=== PATIENT | female | born 1985 | race Two or more races ===

== ENCOUNTER 2020-07-08 09:08 | Emergency (ER) | payer SELFPAY ==
[~2020-07-08] VITALS: Ht 157.5 cm; Wt 66.2 kg
--- NOTE | 2020-07-08 09:15 | NUR ---
[id number] w/ [employer] from [employer] acting bizzare. On room air, agrressive to nurses, kicking and spitting. On room air, breathing evenly and unlabored. sitter at bedside for constant montioring. Will continue to monitor accordingly.
[2020-07-08] MEDS ORDERED: OLANZAPINE 10 MG VIAL IM ONE ×2 (09:16→09:30)
[2020-07-08 09:41] LABS: BASOPHILS # (AUTO) 0.2 /CMM (0.0-0.2); BASOPHILS % (AUTO) 1.8 % (0.0-2.0); EOSINOPHILS % (AUTO) 2.1 % (0.0-6.0); HEMATOCRIT 43 % (33-45); HEMOGLOBIN 13.8 g/dL (11.5-14.8); LYMPHOCYTES # (AUTO) 2.8 /CMM (0.8-4.8); LYMPHOCYTES % (AUTO) 32.7 % (20.0-44.0); MEAN CORPUSCULAR HGB CONC 33 g/dl (31.0-36.0); MEAN CORPUSCULAR VOLUME 92 fL (82-100); MONOCYTES # (AUTO) 0.7 /CMM (0.1-1.30); MONOCYTES % (AUTO) 8.6 % (2.0-12.0); NEUTROPHILS # (AUTO) 4.6 /CMM (1.8-8.9); NEUTROPHILS % (AUTO) 54.8 % (43.0-81.0); PLATELET COUNT (AUTO) 292 /CMM (150-450); RED BLOOD CELL COUNT(AUTO) 4.61 MIL/uL (4.0-5.2); WHITE BLOOD COUNT (AUTO) 8.4 K/uL (4.3-11.0)
[2020-07-08] MEDS ORDERED: LORAZEPAM INJ 2 MG/ML VIAL ONE (09:52)
[2020-07-08] MEDS ORDERED: diphenhydrAMINE HCL 50 MG/ML VIAL ONE (09:52)
--- NOTE | 2020-07-08 09:54 | NUR ---
urine collected and sent to lab
[2020-07-08] MEDS ORDERED: diphenhydrAMINE HCL 50 MG/ML VIAL IM ONE (10:00)
[2020-07-08] MEDS ORDERED: LORAZEPAM INJ 2 MG/ML VIAL IM ONE (10:00)
[2020-07-08 10:06] LABS: CALCIUM, SERUM 9.3 mg/dL (8.5-10.1); CARBON DIOXIDE 24 mmol/L (21-32); CHLORIDE 105 mmol/L (98-107); CREATININE 0.8 mg/dL (0.6-1.3); GLUCOSE 95 mg/dL (74-106); POTASSIUM 3.5 mmol/L (3.5-5.1); SODIUM SERUM 139 mmol/L (136-145); UREA NITROGEN, BLOOD 12 mg/dL (7-18)
[2020-07-08 10:10] LABS: ALANINE AMINOTRANSFERASE 13 U/L (12-78); ALBUMIN 3.5 g/dL (3.4-5.0); ALCOHOL, BLOOD < 3 mg/dL (0-0); ALKALINE PHOSPHATASE 100 U/L (46-116); ASPARTATE AMINOTRANSFERASE 11 U/L (15-37); BILIRUBIN,DIRECT 0.1 mg/dL (0.0-0.2); BILIRUBIN,TOTAL 0.3 mg/dL (0.2-1.0); TOTAL PROTEIN, SERUM 6.9 g/dL (6.4-8.2)
[2020-07-08 10:11] LABS: ACETAMINOPHEN 0 ug/ml (10-30)
[2020-07-08 10:14] LABS: APPEARANCE,URINE Cloudy (CLEAR); BILIRUBIN,URINE SMALL (NEGATIVE); BLOOD, URINE Trace-intact Ery/uL (NEGATIVE); COLOR,URINE Yellow (YELLOW); LEUKOCYTE ESTERASE ,URINE Small (NEGATIVE); NITRITE, URINE Positive (NEGATIVE); PROTEIN,URINE 100 mg/dl (NEGATIVE); UGLUCOSE Negative (NEGATIVE)
[2020-07-08 10:56] LABS: BACTERIA,URINE 1+ /HPF (None Seen); SQUAMOUS EPITHELIAL CELL,UR Few /HPF (None Seen)
--- NOTE | 2020-07-08 16:46 | NUR ---
SW attempted to speak to the patient with assistance of ED RN Michele and tray service worker Pool. Patient asleep due to chemical restraints due to bizarre behavior.
--- NOTE | 2020-07-08 19:59 | NUR ---
ASKED PT TO PROVIDE HER FIRST AND LAST NAME, PT STATED "FUCK OFF"
--- NOTE | 2020-07-08 23:42 | NUR ---
ASKED PT TO PROVIDE INFO, PT REFUSED. PT [id number], AWARE SHE IS AT [facility]
[2020-07-09] MEDS ORDERED: GENTAMICIN OPTH SOLN 0.3% 5 ML BOTTLE ONE (00:04)
--- NOTE | 2020-07-09 00:41 | NUR ---
Patient discharged to home in stable condition. Written and verbal after care instructions given. Patient verbalizes understanding of instruction. Pt refused to provide name. Pt cursing at staff. ambulated out of E.D. with steady gait. vss.
[2020-07-09 00:43] VITALS: BP 121/69
== END 2020-07-09 00:43 | disposition home or self-care (01) ==
LOC: ER 09:13
DX: R46.1 Bizarre personal appearance (principal); R45.1 Restlessness and agitation
CPT/HCPCS: 36415; 80048; 80076; 80299; 80307; 80320; 81001; 84702; 85025; 87086; 96372 ×2; 99284; J1200; J2060; J3490; 81000-TC; 87186-TC; G0480